=== PATIENT | female | born 1950 | race Caucasian/White ===

== ENCOUNTER → 2017-05-10 14:09 | Outpatient (CLI) | payer BC ==
[2017-05-10 16:02] LABS: BASOPHILS 0.1 % (0-2); EOSINOPHILS 0.8 % (0-7); HEMATOCRIT 25.8 % (36.0-48.0); IMMATURE GRANULOCYTES 0.6 % (0-5); LYMPHOCYTES 5.5 % (15-50); MCH 26.5 pg (26.0-34.0); MCHC 28.3 g/dL (31.0-37.0); MCV 93.8 fL (80.0-100.0); MEAN PLATELET VOLUME 11.3 fL (7.4-10.4); MONOCYTES 4.9 % (2-11); NEUTROPHILS 88.1 % (40-80); PLATELET COUNT 822 10x3/uL (130-400); RBC 2.75 10x6/uL (4.00-5.40); RDW 18.5 % (11.5-14.5); WBC 14.3 10x3/uL (4.8-10.8)
[2017-05-10 16:13] LABS: HEMOGLOBIN 7.3 g/dL (12-16)
[2017-05-10 16:24] LABS: ALBUMIN 1.9 g/dL (3.4-5.0); BILIRUBIN - TOTAL 0.62 mg/dL (0.2-1.3); CALCIUM 7.5 mg/dL (8.5-10.1); CARBON DIOXIDE 18.7 mmol/L (21.0-32.0); CREATININE - SERUM 0.9 mg/dL (0.6-1.3); MAGNESIUM - SERUM 3.3 mg/dL (1.8-2.4); PRE-ALBUMIN 17.2 mg/dL (18.0-35.7)
[2017-05-10 16:37] LABS: ANION GAP 23.2 mmol/L (8-16); PROTEIN - SERUM 6.5 g/dL (6.4-8.2)
[2017-05-10 16:39] LABS: POTASSIUM - SERUM 8.9 mmol/L (3.5-5.1)
== END | disposition home or self-care (01) ==
LOC: D.LABREF 14:09
PROVIDERS: Family Medicine
DX: R78.81 Bacteremia (principal); A49.8 Other bacterial infections of unspecified site; C54.1 Malignant neoplasm of endometrium; N17.9 Acute kidney failure, unspecified

== ENCOUNTER → 2017-05-12 10:46 | Outpatient (CLI) | payer BC ==
[2017-05-12 11:57] LABS: ALBUMIN 1.8 g/dL (3.4-5.0); BILIRUBIN - TOTAL 0.54 mg/dL (0.2-1.3); CALCIUM 7.2 mg/dL (8.5-10.1); CARBON DIOXIDE 19.7 mmol/L (21.0-32.0); CREATININE - SERUM 0.9 mg/dL (0.6-1.3); MAGNESIUM - SERUM 3.3 mg/dL (1.8-2.4); PHOSPHOROUS 7.3 mg/dL (2.5-4.9); PROTEIN - SERUM 6.4 g/dL (6.4-8.2)
[2017-05-12 11:59] LABS: POTASSIUM - SERUM 7.7 mmol/L (3.5-5.1)
== END | disposition home or self-care (01) ==
LOC: D.LABREF 10:46
PROVIDERS: Surgery
DX: K65.1 Peritoneal abscess (principal); C54.1 Malignant neoplasm of endometrium; B96.20 Unspecified Escherichia coli [E. coli] as the cause of diseases classified elsewhere; Z22.39 Carrier of other specified bacterial diseases

== ENCOUNTER → 2017-05-13 11:45 | Outpatient (CLI) | payer BC ==
[2017-05-13 12:49] LABS: BASOPHILS 0.1 % (0-2); EOSINOPHILS 0.9 % (0-7); IMMATURE GRANULOCYTES 0.7 % (0-5); LYMPHOCYTES 7.9 % (15-50); MCH 26.3 pg (26.0-34.0); MCHC 30.4 g/dL (31.0-37.0); MCV 86.3 fL (80.0-100.0); MEAN PLATELET VOLUME 10.3 fL (7.4-10.4); MONOCYTES 5.7 % (2-11); NEUTROPHILS 84.7 % (40-80); PLATELET COUNT 985 10x3/uL (130-400); RBC 2.78 10x6/uL (4.00-5.40); RDW 17.5 % (11.5-14.5); WBC 13.8 10x3/uL (4.8-10.8)
[2017-05-13 12:52] LABS: ALBUMIN 2.2 g/dL (3.4-5.0); ALKALINE PHOSPHATASE 513 U/L (46-116); ALT (SGPT) 66 U/L (10-68); BILIRUBIN - TOTAL 0.32 mg/dL (0.2-1.3); CALCIUM 8.8 mg/dL (8.5-10.1); CARBON DIOXIDE 21.2 mmol/L (21.0-32.0); CHLORIDE - SERUM 99 mmol/L (98-107); CREATININE - SERUM 0.7 mg/dL (0.6-1.3); MAGNESIUM - SERUM 2.6 mg/dL (1.8-2.4); PRE-ALBUMIN 20.8 mg/dL (18.0-35.7); PROTEIN - SERUM 7.3 g/dL (6.4-8.2); SODIUM 134 mmol/L (136-145); UREA NITROGEN 28 mg/dL (7-18); eGFR NON AFRICAN AMERICAN 88 mL/min (90-120)
[2017-05-13 12:54] LABS: CALC OSMOLALITY 273 mosm/kg (275-300); GLUCOSE 107 mg/dL (74-106)
[2017-05-13 12:58] LABS: HEMOGLOBIN 7.3 g/dL (12-16)
== END | disposition home or self-care (01) ==
LOC: D.LABREF 11:45
PROVIDERS: Surgery
DX: K65.1 Peritoneal abscess (principal); C54.1 Malignant neoplasm of endometrium; B96.20 Unspecified Escherichia coli [E. coli] as the cause of diseases classified elsewhere; Z22.39 Carrier of other specified bacterial diseases

== ENCOUNTER → 2017-05-17 15:58 | Outpatient (CLI) | payer BC ==
[2017-05-17 20:43] LABS: BASOPHILS 0.2 % (0-2); HEMATOCRIT 22.8 % (36.0-48.0); IMMATURE GRANULOCYTES 0.8 % (0-5); LYMPHOCYTES 14.4 % (15-50); MCH 25.6 pg (26.0-34.0); MCHC 29.4 g/dL (31.0-37.0); MEAN PLATELET VOLUME 9.4 fL (7.4-10.4); MONOCYTES 7.4 % (2-11); NEUTROPHILS 76.2 % (40-80); PLATELET COUNT 966 10x3/uL (130-400); RBC 2.62 10x6/uL (4.00-5.40); RDW 17.5 % (11.5-14.5); WBC 10.8 10x3/uL (4.8-10.8)
[2017-05-17 21:09] LABS: ALBUMIN 2.2 g/dL (3.4-5.0); ANION GAP 18.9 mmol/L (8-16); BILIRUBIN - TOTAL 0.23 mg/dL (0.2-1.3); CALCIUM 8.7 mg/dL (8.5-10.1); CARBON DIOXIDE 20.3 mmol/L (21.0-32.0); CREATININE - SERUM 0.9 mg/dL (0.6-1.3); MAGNESIUM - SERUM 1.8 mg/dL (1.8-2.4); PHOSPHOROUS 3.3 mg/dL (2.5-4.9); POTASSIUM - SERUM 4.2 mmol/L (3.5-5.1); PRE-ALBUMIN 19.8 mg/dL (18.0-35.7)
[2017-05-17 21:38] LABS: HEMOGLOBIN 6.7 g/dL (12-16)
== END | disposition home or self-care (01) ==
LOC: D.LABREF 15:58
PROVIDERS: Surgery
DX: B96.20 Unspecified Escherichia coli [E. coli] as the cause of diseases classified elsewhere (principal); C54.1 Malignant neoplasm of endometrium; K65.1 Peritoneal abscess; Z45.2 Encounter for adjustment and management of vascular access device

== ENCOUNTER → 2017-08-30 16:16 | Outpatient (CLI) | payer BC ==
[2017-08-30 18:52] LABS: BASOPHILS 0.1 % (0-2); EOSINOPHILS 3.1 % (0-7); HEMATOCRIT 27.3 % (36.0-48.0); HEMOGLOBIN 8.1 g/dL (12-16); IMMATURE GRANULOCYTES 0.1 % (0-5); LYMPHOCYTES 13.2 % (15-50); MCH 25.7 pg (26.0-34.0); MCHC 29.7 g/dL (31.0-37.0); MCV 86.7 fL (80.0-100.0); MEAN PLATELET VOLUME 9.3 fL (7.4-10.4); MONOCYTES 10.1 % (2-11); NEUTROPHILS 73.4 % (40-80); RBC 3.15 10x6/uL (4.00-5.40); RDW 17.2 % (11.5-14.5); WBC 6.8 10x3/uL (4.8-10.8)
[2017-08-30 18:56] LABS: PLATELET COUNT 560 10x3/uL (130-400)
[2017-08-30 20:23] LABS: ALBUMIN 2.1 g/dL (3.4-5.0); ALKALINE PHOSPHATASE 140 U/L (46-116); ALT (SGPT) 22 U/L (10-68); BILIRUBIN - DIRECT 0.06 mg/dL (0.00-0.30); BILIRUBIN - INDIRECT 0.05 mg/dL (0.00-1.00); BILIRUBIN - TOTAL 0.11 mg/dL (0.2-1.3); CALC OSMOLALITY 279 mosm/kg (275-300); CALCIUM 8.1 mg/dL (8.5-10.1); CARBON DIOXIDE 23.5 mmol/L (21.0-32.0); CHLORIDE - SERUM 104 mmol/L (98-107); CREATININE - SERUM 0.7 mg/dL (0.6-1.3); GLUCOSE 95 mg/dL (74-106); POTASSIUM - SERUM 3.3 mmol/L (3.5-5.1); PROTEIN - SERUM 6.4 g/dL (6.4-8.2); SODIUM 140 mmol/L (136-145); UREA NITROGEN 14 mg/dL (7-18); eGFR NON AFRICAN AMERICAN 88 mL/min (90-120)
== END | disposition home or self-care (01) ==
LOC: D.LABREF 16:16
DX: K65.1 Peritoneal abscess (principal); B49 Unspecified mycosis; A41.89 Other specified sepsis

== ENCOUNTER → 2017-09-06 18:01 | Outpatient (CLI) | payer BC ==
[2017-09-06 18:21] LABS: BASOPHILS 0.2 % (0-2); EOSINOPHILS 3.4 % (0-7); HEMATOCRIT 28.9 % (36.0-48.0); HEMOGLOBIN 8.6 g/dL (12-16); IMMATURE GRANULOCYTES 0.2 % (0-5); LYMPHOCYTES 15.8 % (15-50); MCHC 29.8 g/dL (31.0-37.0); MCV 87.3 fL (80.0-100.0); MEAN PLATELET VOLUME 9.4 fL (7.4-10.4); MONOCYTES 9.4 % (2-11); PLATELET COUNT 521 10x3/uL (130-400); RBC 3.31 10x6/uL (4.00-5.40); RDW 17.7 % (11.5-14.5); WBC 6.4 10x3/uL (4.8-10.8)
[2017-09-06 18:45] LABS: ALBUMIN 2.2 g/dL (3.4-5.0); ALKALINE PHOSPHATASE 142 U/L (46-116); ALT (SGPT) 16 U/L (10-68); BILIRUBIN - DIRECT 0.08 mg/dL (0.00-0.30); BILIRUBIN - INDIRECT 0.15 mg/dL (0.00-1.00); BILIRUBIN - TOTAL 0.23 mg/dL (0.2-1.3); CALC OSMOLALITY 276 mosm/kg (275-300); CALCIUM 8.1 mg/dL (8.5-10.1); CARBON DIOXIDE 25.1 mmol/L (21.0-32.0); CHLORIDE - SERUM 103 mmol/L (98-107); CREATININE - SERUM 0.8 mg/dL (0.6-1.3); POTASSIUM - SERUM 3.6 mmol/L (3.5-5.1); SODIUM 140 mmol/L (136-145); UREA NITROGEN 12 mg/dL (7-18); eGFR NON AFRICAN AMERICAN 76 mL/min (90-120)
[2017-09-06 18:46] LABS: GLUCOSE 59 mg/dL (74-106)
== END | disposition home or self-care (01) ==
LOC: D.LABREF 18:01
PROVIDERS: Family Medicine
DX: T81.4XXA Infection following a procedure, initial encounter (principal)

== ENCOUNTER → 2017-09-13 17:29 | Outpatient (CLI) | payer BC ==
[2017-09-13 18:46] LABS: BASOPHILS 0.4 % (0-2); EOSINOPHILS 4.8 % (0-7); HEMATOCRIT 28.3 % (36.0-48.0); HEMOGLOBIN 8.3 g/dL (12-16); IMMATURE GRANULOCYTES 0.2 % (0-5); LYMPHOCYTES 16.9 % (15-50); MCH 25.7 pg (26.0-34.0); MCHC 29.3 g/dL (31.0-37.0); MCV 87.6 fL (80.0-100.0); MEAN PLATELET VOLUME 9.4 fL (7.4-10.4); MONOCYTES 12.1 % (2-11); NEUTROPHILS 65.6 % (40-80); PLATELET COUNT 570 10x3/uL (130-400); RBC 3.23 10x6/uL (4.00-5.40); RDW 18.1 % (11.5-14.5); WBC 5.2 10x3/uL (4.8-10.8)
[2017-09-13 19:04] LABS: ALBUMIN 2.1 g/dL (3.4-5.0); ALKALINE PHOSPHATASE 133 U/L (46-116); ALT (SGPT) 17 U/L (10-68); BILIRUBIN - TOTAL 0.13 mg/dL (0.2-1.3); CALC OSMOLALITY 272 mosm/kg (275-300); CALCIUM 8.1 mg/dL (8.5-10.1); CARBON DIOXIDE 28.3 mmol/L (21.0-32.0); CHLORIDE - SERUM 104 mmol/L (98-107); CREATININE - SERUM 0.7 mg/dL (0.6-1.3); GLUCOSE 71 mg/dL (74-106); POTASSIUM - SERUM 3.1 mmol/L (3.5-5.1); PROTEIN - SERUM 6.2 g/dL (6.4-8.2); SODIUM 138 mmol/L (136-145); UREA NITROGEN 9 mg/dL (7-18); eGFR NON AFRICAN AMERICAN 88 mL/min (90-120)
[2017-09-13 19:05] LABS: BILIRUBIN - DIRECT 0.03 mg/dL (0.00-0.30)
== END | disposition home or self-care (01) ==
LOC: D.LABREF 17:29
PROVIDERS: Family Medicine
DX: S31.109A Unspecified open wound of abdominal wall, unspecified quadrant without penetration into peritoneal cavity, initial encounter (principal); Z51.81 Encounter for therapeutic drug level monitoring; Z79.2 Long term (current) use of antibiotics

== ENCOUNTER → 2019-07-27 14:26 | Outpatient (CLI) | payer SELFPAY ==
[2019-07-27 20:14] LABS: BILIRUBIN NEGATIVE (NEGATIVE); GLUCOSE NEGATIVE (NEGATIVE); KETONE NEGATIVE (NEGATIVE); NITRITE POSITIVE (NEGATIVE); UROBILINOGEN NORMAL (NORMAL)
[2019-07-27 20:17] LABS: RED CELLS - URINE 25-50 /hpf (0-5); WHITE CELLS - URINE >50 /hpf (NEGATIVE)
[2019-07-27 20:18] LABS: BACTERIA MANY /hpf (NEGATIVE); EPITHELIAL CELLS 0-5 /hpf (0-5)
== END | disposition home or self-care (01) ==
LOC: D.LABREF 14:26
PROVIDERS: ATTEND Family Medicine
DX: N39.0 Urinary tract infection, site not specified (principal)

== ENCOUNTER → 2019-07-28 14:58 | Outpatient (CLI) | payer SELFPAY ==
[2019-07-28 16:36] LABS: BILIRUBIN NEGATIVE (NEGATIVE); GLUCOSE NEGATIVE (NEGATIVE); KETONE NEGATIVE (NEGATIVE); NITRITE POSITIVE (NEGATIVE); UROBILINOGEN NORMAL (NORMAL)
[2019-07-28 16:37] LABS: BACTERIA MANY /hpf (NEGATIVE); EPITHELIAL CELLS 0-5 /hpf (0-5); RED CELLS - URINE 0-5 /hpf (0-5); WHITE CELLS - URINE 25-50 /hpf (NEGATIVE)
== END | disposition home or self-care (01) ==
LOC: D.LABREF 14:58
PROVIDERS: ATTEND Family Medicine
DX: N39.0 Urinary tract infection, site not specified (principal)

== ENCOUNTER → 2020-08-01 14:19 | Outpatient (CLI) | payer MEDICARE ==
[2020-08-01 16:25] LABS: BASOPHILS 0.4 % (0-2); EOSINOPHILS 1.9 % (0-7); HEMATOCRIT 31.8 % (36.0-48.0); HEMOGLOBIN 10.1 g/dL (12-16); LYMPHOCYTES 19.8 % (15-50); MCH 24.4 pg (26.0-34.0); MCHC 31.8 g/dL (31.0-37.0); MCV 76.6 fL (80.0-100.0); MEAN PLATELET VOLUME 7.9 fL (7.4-10.4); NEUTROPHILS 71.9 % (40-80); PLATELET COUNT 618 10x3/uL (130-400); RBC 4.15 10x6/uL (4.00-5.40); RDW 17.8 % (11.5-14.5); WBC 10.9 10x3/uL (4.8-10.8)
== END | disposition home or self-care (01) ==
LOC: D.LABREF 14:19
PROVIDERS: ATTEND Family Medicine
DX: D64.9 Anemia, unspecified (principal)